=== PATIENT | female | born 1935 | race Caucasian/White ===

== ENCOUNTER 2022-11-03 11:58 | Outpatient (OUT) | payer MEDICARE, SELFPAY ==
[2022-11-03 13:05] LABS: Basophils Absolute Auto 0.1 10^3/uL (0.0-0.1); Basophils Percent Auto 0.5 % (0.2-2.0); Creatinine Urine Random 83.59 mg/dL (20.00-300.00); Eosinophils Absolute Auto 0.2 10^3/uL (0.0-0.7); Eosinophils Percent Auto 2.2 % (0.9-7.0); Hematocrit 44.4 % (36.0-48.0); Hemoglobin 14.5 g/dL (12.0-16.0); Immature Granulocytes Abs Auto 0.03 10^3/uL (0.00-0.03); Immature Granulocytes Pct Auto 0.3 % (0.0-0.5); Lymphocytes Absolute Auto 2.3 10^3/uL (1.2-3.8); Lymphocytes Percent Auto 23.5 % (20.5-60.0); Mean Corpuscular HGB Conc 32.7 g/dL (29.9-35.2); Mean Corpuscular Hemoglobin 29.4 pg (26.7-34.0); Mean Corpuscular Volume 90.1 fL (81.0-99.0); Monocytes Absolute Auto 0.8 10^3/uL (0.3-0.8); Monocytes Percent Auto 8.6 % (1.7-12.0); Neutrophils Absolute Auto 6.3 10^3/uL (1.4-6.5); Neutrophils Percent Auto 64.9 % (43.0-75.0); Platelet Count 226 10^3/uL (150-450); Protein Creatinine Ratio Urine 0.11; Red Blood Count 4.93 10^6/uL (4.20-5.40); Red Cell Distribution Width 15.4 % (11.0-15.0); Total Protein Urine Random 9.3 mg/dL (<=11.9); White Blood Count 9.7 10^3/uL (4.0-11.0)
[2022-11-03 14:01] LABS: Albumin Level 4.1 g/dL (3.4-5.0); Anion Gap 12.4; BUN Creatinine Ratio 17.2; Calcium 9.6 mg/dL (8.5-10.1); Carbon Dioxide 28.4 mmol/L (21.0-32.0); Chloride 105 mmol/L (98-107); Estimated GFR (African America 48 (>=60); Estimated GFR (Non-African Ame 40 (>=60); Glucose 106 mg/dL (74-106); Magnesium 1.8 mg/dL (1.8-2.4); Potassium 4.8 mmol/L (3.5-5.1); Sodium 141 mmol/L (136-145)
== END 2022-11-03 11:59 | disposition home or self-care (01) ==
PROVIDERS: PCP Family Medicine
DX: N18.31 Chronic kidney disease, stage 3a (principal)
CPT/HCPCS: 36415; 80048; 82042; 82570; 83735; 84100; 84156; 85025

== ENCOUNTER 2023-05-04 10:13 | Outpatient (OUT) | payer MEDICARE, SELFPAY ==
[2023-05-04 10:55] LABS: Hemoglobin 14.9 g/dL (12.0-16.0)
[2023-05-04 11:31] LABS: Protein Creatinine Ratio Urine 0.11; Total Protein Urine Random 12.3 mg/dL (<=11.9)
[2023-05-04 14:43] LABS: Albumin Level 3.7 g/dL (3.4-5.0); Anion Gap 9.9; BUN Creatinine Ratio 19.7; Calcium 9.4 mg/dL (8.5-10.1); Carbon Dioxide 28.5 mmol/L (21.0-32.0); Chloride 103 mmol/L (98-107); Estimated GFR (African America 46 (>=60); Estimated GFR (Non-African Ame 38 (>=60); Glucose 91 mg/dL (74-106); Magnesium 1.9 mg/dL (1.8-2.4); Phosphorus 4.6 mg/dL (2.6-4.7); Potassium 4.4 mmol/L (3.5-5.1); Sodium 137 mmol/L (136-145)
== END 2023-05-04 10:14 | disposition home or self-care (01) ==
PROVIDERS: PCP Family Medicine; Visit Provider Internal Medicine Nephrology
DX: N18.31 Chronic kidney disease, stage 3a (principal)
CPT/HCPCS: 36415; 80048; 82042; 82570; 83735; 84100; 84156; 85018

== ENCOUNTER 2023-11-09 10:23 | Outpatient (OUT) | payer MEDICARE, SELFPAY ==
[2023-11-09 11:38] LABS: Hemoglobin 15.2 g/dL (12.0-16.0)
[2023-11-09 12:55] LABS: Creatinine Urine Random 46.59 mg/dL (20.00-300.00); Protein Creatinine Ratio Urine 0.13; Total Protein Urine Random <6.0 mg/dL (<=11.9)
[2023-11-09 13:14] LABS: Albumin Level 3.8 g/dL (3.4-5.0); Anion Gap 13.3; BUN Creatinine Ratio 19.7; Calcium 9.1 mg/dL (8.5-10.1); Carbon Dioxide 27.4 mmol/L (21.0-32.0); Chloride 104 mmol/L (98-107); Estimated GFR (African America 46 (>=60); Estimated GFR (Non-African Ame 38 (>=60); Glucose 94 mg/dL (74-106); Phosphorus 3.7 mg/dL (2.6-4.7); Potassium 4.7 mmol/L (3.5-5.1); Sodium 140 mmol/L (136-145)
== END 2023-11-09 10:24 | disposition home or self-care (01) ==
LOC: LAB 10:27
PROVIDERS: PCP Family Medicine; Visit Provider Internal Medicine Nephrology
DX: N18.31 Chronic kidney disease, stage 3a (principal)
CPT/HCPCS: 36415; 80048; 82042; 82570; 83735; 84100; 84156; 85018